=== PATIENT | female | born 1995 | race African-American/Black ===

== ENCOUNTER 2024-03-02 12:06 | Emergency (ER) | payer MEDICAID, OTHER ==
[2024-03-02 13:39] LABS: ALT (SGPT) 39 U/L (8-55); AST (SGOT) 78 U/L (5-34); Albumin 4.4 g/dL (3.5-5.0); Alkaline Phosphatase 69 U/L (40-110); Anion Gap 15 mmol/L (10-20); BUN (Urea Nitrogen) 10 mg/dL (7.0-18.7); CK (CPK) 44 U/L (29-168); Calc. Creatinine Clearance 0 mL/min (70-130); Calcium 9.6 mg/dL (7.8-10.44); Carbon Dioxide 18 mmol/L (22-29); Chloride 109 mmol/L (98-107); Estimated GFR 119; Globulin 3.9 g/dL (2.4-3.5); Glucose 82 mg/dL (70-105); Potassium 4.1 mmol/L (3.5-5.1); Protein, Total 8.3 g/dL (6.0-8.3); Sodium 138 mmol/L (136-145)
[2024-03-02 13:41] LABS: Hematocrit 18.5 % (34.9-44.5); Hemoglobin 6.8 g/dL (12.0-15.5); Mean Corpuscular HGB CONC 36.8 g/dL (32.0-36.0); Mean Corpuscular Hemoglobin 34.3 pg (27.0-33.0); Mean Corpuscular Volume 93.4 fL (81.6-98.3); Mean Platelet Volume 11.9 fL (7.4-10.4); Platelet Count 306 10x3/uL (150-450); RBC Distribution Width 22.1 % (11.5-14.5); Red Blood Cell (RBC) Count 1.98 10x6/uL (3.90-5.03)
[2024-03-02] MEDS ORDERED: HYDROmorphone 0.5 MG/0.5 ML SYRINGE ONE ×2 (14:00→15:28)
[2024-03-02 14:15] LABS: Band 6 % (5-11); Lymphocytes 39 % (21-51); Monocytes 12 % (0-10); Nucleated RBC (Manual Ct) 5 % (0)
[2024-03-02 14:17] LABS: Anisocytosis MODERATE=16-30 cells (100X) (0-5/hpf)
[2024-03-02 14:18] LABS: Large Platelets SLIGHT (None Seen); Platelet Adequacy Comment Appears Adequate; Polychromasia MODERATE = 3-4 cells (100X) (0-2/hpf); Sickle Cells MODERATE= 6-15 cells (100X) (None Seen); Target Cells SLIGHT = 2-5 cells (100X) (0-1/hpf); Vacuoles SLIGHT
[2024-03-02] MEDS ORDERED: diphenhydrAMINE 50 MG/ML VIAL ONE ×2 (14:25→16:17)
[2024-03-02 14:40] LABS: White Blood Cell (WBC) Count 14.3 10x3/uL (3.5-10.5)
[2024-03-02] MEDS ORDERED: HYDROcodone/Acetaminophen 10/325 mg Tablet ONE (18:26)
== END 2024-03-02 18:52 | disposition home or self-care (01) ==
LOC: CSHERS 12:06
DX: D57.1 Sickle-cell disease without crisis (principal); M79.604 Pain in right leg; M79.605 Pain in left leg
CPT/HCPCS: 36415; 36430; 80053; 82550; 85025; 85046; 86850; 86900; 86901; 86922; 96374; 96375; 96376; J1170; J1200; P9016